=== PATIENT | male | born 1970 | race Caucasian/White ===

== ENCOUNTER 2019-10-25 01:17 | Outpatient (CLI) | payer OTHER, SELFPAY ==
[2019-10-25 19:25] LABS: SARS-CoV-2 RNA PCR Negative
== END 2019-10-25 01:18 | disposition home or self-care (01) ==
LOC: ANHCOVIDDT 01:17
PROVIDERS: PCP Family Medicine; Visit Provider Internal Medicine Gastroenterology
DX: Z01.812 Encounter for preprocedural laboratory examination (principal); Z11.59 Encounter for screening for other viral diseases
CPT/HCPCS: 87635; C9803; U0003

== ENCOUNTER 2019-10-27 01:04 | Day surgery (SDC) | payer OTHER, SELFPAY ==
[2019-10-20 11:25] VITALS: BMI 27.6
--- NOTE | 2019-10-27 08:46 | P.CONGI_ITS ---
Assessment and Plan Assessment and plan (1) Nausea and vomiting in adult: Code(s): R11.2 - Nausea with vomiting, unspecified Status: Acute Assessment and Plan: patient has had recurrent episodes of nausea vomiting. Plan is for EGD to assess more thoroughly. Continuing Pepcid on a routine basis in anti-reflux measures encouraged for the immediate future. GI Consult Note Consult date/time: 10/27/19 08:46 HPI: Cipriano Garcia is a 49 year old male seen in evaluation at the request of Dr Kevin Galo. patient has complaints of nausea vomiting these episodes will occur at intervals sometimes every 2-3 days. He also has associated palpitations and shortness of breath. Sometimes symptoms will occur in last for up to 3 days. He denies any dysphagia weight loss or bleeding. He has begun to notice some improvement on taking Pepcid. Family history is significant his father had a myocardial infarction and 2 years ago Patient initially evaluated in the emergency room at [facility]. Patient presents today for EGD because of persistent symptoms recent ultrasound of the right upper quadrant was unremarkable. CT scan of the abdomen was unremarkable. CBC and liver function tests are also unremarkable.. Review of Systems Review of Systems: All systems reviewed & are unremarkable except as noted in HPI and below Meds Home Medications and Allergies Home Medications Medication Instructions Recorded Confirmed Type famotidine 20 mg PO DAILY 10/20/19 10/20/19 History Allergies Allergy/AdvReac Type Severity Reaction Status Date / Time No Known Allergies Allergy Verified 10/27/19 08:46 Exam Narrative: Exam Narrative: Physical exam reveals patient to be alert. Vital signs stable. HEENT exam unremarkable. Lungs are clear to auscultation and percussion. Heart is without murmur or extra sounds. Abdominal exam bowel sounds are present soft nontender with no hepatosplenomegaly. Digital external rectal exam normal
[2019-10-27] MEDS: LACTATED RINGERS 1,000 ML 150 ML IV CONT (09:00)
[2019-10-27 09:04] VITALS: BP 141/82; PULSE 56; RESP 16; TEMP 36.5; O2SAT 100; BMI 27.8
--- NOTE | 2019-10-27 09:05 | WPDANESEPPF ---
Anes - Initial Pre Proc Eval Procedure: Operation Date: 10/27/19 09:30 Proposed Procedures p Esophagogastroduodenoscopy - James Causey MD Date/Time: 10/27/19 09:05 Surgeon: James Causey MD Pre Op Diagnosis: N & V Patient Data Age: 49 Gender: M Height: 5 ft 11 in Weight: 90 kg Allergies Allergy/AdvReac Type Severity Reaction Status Date / Time No Known Allergies Allergy Verified 10/27/19 08:46 Home Medications Medication Instructions Recorded Confirmed Type famotidine 20 mg PO DAILY 10/20/19 10/27/19 History Patient hx anesthesia problems: none Family hx anesthesia problems: none COUNTS INCLUDE 234 BEDS AT THE [facility] Past Medical History Medical History GERD (gastroesophageal reflux disease) Smoker Tobacco abuse Anes - Eval Final PreProcedure Day of Procedure 10/27/19 09:05 Patient weight: overweight Heart: regular rate and rhythm Lungs: decreased breath sounds Airway: Mallampati scale class II Neurological: alert and oriented Last oral intake: >/= 8 hours ASA classification: III Emergent: no Anesthetic plan: proceed Anesthesia type and monitoring: general GIVS and standard monitoring Informed Consent: The patient's anesthetic plan and its attendant risks and benefits were discussed with the patient/family/POA. Questions were solicited and answers provided to the satisfaction of the patient/family/POA.
[2019-10-27 09:20] VITALS: BP 123/68; PULSE 54; RESP 18; O2SAT 95
[2019-10-27 09:50] VITALS: BP 123/68; PULSE 54; RESP 18; O2SAT 95
[2019-10-27 10:00] VITALS: BP 135/63; PULSE 49; RESP 26; O2SAT 100
[2019-10-27 10:09] VITALS: BP 101/74; PULSE 47; RESP 20; O2SAT 100
== END 2019-10-27 10:27 | disposition home or self-care (01) ==
PROVIDERS: PCP Family Medicine; Visit Provider Internal Medicine Gastroenterology
PROC: 0DJ08ZZ Inspection of Upper Intestinal Tract, Via Natural or Artificial Opening Endoscopic (ICD-10-PCS; CPT 43235; principal; 2019-10-27 09:30)
DX: K21.0 Gastro-esophageal reflux disease with esophagitis (principal)
CPT/HCPCS: 43239; 87081; J2704; J7120